=== PATIENT | female | born 1985 | race Caucasian/White ===

== ENCOUNTER → 2019-03-07 15:00 | Outpatient (CLI) | payer OTHER, SELFPAY ==
[2019-03-10 17:00] LABS: HPV Reflexed? NOT INDICATED
== END ==
PROVIDERS: Visit Provider Obstetrics & Gynecology
DX: Z12.4 Encounter for screening for malignant neoplasm of cervix (principal)
CPT/HCPCS: 88175; G0145

== ENCOUNTER → 2020-07-23 10:00 | Outpatient (CLI) | payer OTHER, SELFPAY ==
[2015-07-23 08:46] VITALS: BMI 23.4
[2020-07-26 12:57] LABS: HPV Reflexed? NOT INDICATED
== END ==
PROVIDERS: Visit Provider Obstetrics & Gynecology
DX: Z12.4 Encounter for screening for malignant neoplasm of cervix (principal)
CPT/HCPCS: 88175; G0145